=== PATIENT | female | born 1955 | race Caucasian/White ===

== ENCOUNTER 2019-06-02 07:44 | Day surgery (SDC) | payer OTHER ==
[2019-05-31 16:38] VITALS: BMI 20.7
[2019-06-02] MEDS ORDERED: PROPOFOL 20 ML ONE ×2 (08:18)
[2019-06-02 08:24] VITALS: TEMP 97.7
[2019-06-02 10:11] VITALS: BP 113/54; PULSE 55
== END 2019-06-02 10:05 | disposition home or self-care (01) ==
LOC: FASU-ENDO 07:44
PROVIDERS: ATTEND Internal Medicine Gastroenterology
PROC: 0DJD8ZZ Inspection of Lower Intestinal Tract, Via Natural or Artificial Opening Endoscopic (ICD-10-PCS; principal; 2019-06-02 09:02)
DX: Z12.11 Encounter for screening for malignant neoplasm of colon (principal)